=== PATIENT | male | born 1975 | race Caucasian/White ===

== ENCOUNTER 2017-12-29 07:56 | Emergency (ER) | payer BC, OTHER ==
[~2017-12-29] VITALS: Ht 182.9 cm; Wt 163.3 kg
--- OUTSIDE RECORDS SUMMARY | 2017-12-29 08:05 | XMS REPORT | CCD ---
Author Author EBONI CONROY Organization Unknown Address [address] [place], [place] [id number] Care Team Providers Care Tech Ed/Woodshop Teacher Name Role Phone [facility], SHEBA DO Attphys [facility], SHEBA DO Prisurg Vital Signs Unknown or Not Available. Allergies Unknown or Not Available. Procedures Procedure Code Procedure Type Date CT HEAD W/WO CONTRAST [id number] SNOMED CT 04/30/2015 LOCM 300-349 MG/ML, PER ML [id number] SNOMED CT 04/30/2015 History of Immunizations Unknown or Not Available. Problems Unknown or Not Available. Results Unknown or Not Available. Active Medications Unknown or Not Available. Medications Administered During Visit Unknown or Not Available. 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 Discharge Instructions You were admitted to [facility] on 04/30/2015 09:14 with a principal diagnosis of Baumann's palsy You were discharged from [facility] on 04/30/2015 11:46 Should you have any questions prior to discharge, please contact a member of your healthcare team. If you have left the hospital and have any questions, please contact your primary care physician. Chief Complaint and Reason For Visit Chief Complaint Date of Onset MIGRAIN Function Status Unknown or Not Available. Plan of Care Unknown or Not Available. Referral/Transition of Care Unknown or Not Available.
--- OUTSIDE RECORDS SUMMARY | 2017-12-29 08:06 | XMS REPORT ---
Author Author Abdirahman Ramirez V [facility] Address [address] [place], [place] [id number] Care Team Providers Care Inseminator Name Role Phone Abdirahman Ramirez V PCP Unavailable Abdirahman Ramirez V PreferredProvider Unavailable Allergies and Adverse Reactions Name Reaction Notes Adalat elevated bp, chest pain Plan of Treatment Not available. Medications Active Name Start Date Estimated Completion Date SIG Comments cyclobenzaprine oral hydrochlorothiazide oral metoprolol tartrate 50 mg oral tablet take 1 tablet (50 mg) by oral route 2 times per day with meals alprazolam 2 mg oral tablet 10/14/2017 02/11/2018 Take 1/2 tablet by mouth in the morning and 1/2 tablet in evening, and 1 tablet at bedtime Name Start Date Expiration Date SIG Comments Enalapril Maleate Oral Tablet 10 mg 04/17/2008 05/17/2008 DILT-CD Oral Capsule, Sust. Release 24 hr 300 mg 09/18/2008 10/18/2008 Bisoprolol-Hydrochlorothiazide Oral Tablet 5-6.25 mg 01/30/2009 03/01/2009 Halcion Oral Tablet 0.25 mg 05/01/2009 05/31/2009 take 2 tablets (0.5 mg) by oral route once daily at bedtime as needed for 30 days Levitra Oral Tablet 20 mg 09/04/2009 09/10/2009 take 1 tablet (20 mg) by oral route once daily as needed approximately 1 hour before sexual activity for 3 days tramadol 50 mg oral tablet 09/14/2017 10/14/2017 take 2 tablets by oral route 3 times a day for 30 days Discontinued Name Start Date Discontinued Date SIG Comments Hydrochlorothiazide Oral Tablet 25 mg 04/17/2008 10/11/2009 Flexeril Oral Tablet 10 mg 03/26/2009 10/11/2009 take 1 tablet (10 mg) by oral route 2 times per day Benicar HCT Oral Tablet 40-25 mg 10/11/2009 11/09/2012 take 1 tablet by oral route once daily Fish Oil Oral Capsule 1,000 mg 10/13/2013 take 1 capsule by oral route daily Amrix Oral Capsule, Sust. Release 24 hr 15 mg 10/13/2013 take 1 capsule ( 15 mg) by oral route once daily Pravastatin Oral Tablet 20 mg 11/09/2012 take 1 tablet (20 mg) by oral route once daily Potassium Chloride Oral Tab Sust.Rel. Particle/Crystal 20 mEq 10/13/2013 take 1 tablet (20 meq) by oral route once daily with food Problem List Not available. Vital Signs Date Time BP-Sys(mm[Hg] BP-Dora(mm[Hg]) HR(bpm) RR(rpm) Temp WT HT HC BMI BSA BMI Percentile O2 Sat(%) 09/17/2017 5:34:00 PM 158 mmHg 78 mmHg 86 bpm 18 rpm 99 F 368.5 lbs 73 in 48.6172 kg/m 2.9341 m 98 % 10/13/2013 8:22:00 AM 136 mmHg 72 mmHg 92 bpm 18 rpm 96.8 F 335 lbs 73 in 44.20 kg/m2 2.80 m2 98 % 11/09/2012 9:33:00 AM 136 mmHg 64 mmHg 98 bpm 18 rpm 98.6 F 346.25 lbs 73 in 45.6817 kg/m 2.8442 m 98 % 11/06/2010 9:15:00 AM 110 mmHg 70 mmHg 100 bpm 18 rpm 98.3 F 309.375 lbs 73 in 40.82 kg/m2 2.69 m2 99 % 11/11/2009 8:50:00 AM 100 mmHg 70 mmHg 76 bpm 18 rpm 98.2 F 303.5 lbs 73 in 40.0416 kg/m 2.6628 m 10/09/2009 10:57:00 AM 128 mmHg 82 mmHg 10/09/2009 10:36:00 AM 148 mmHg 98 mmHg 10/09/2009 10:13:00 AM 152 mmHg 100 mmHg 84 bpm 20 rpm 98.3 F 306 lbs 73.5 in 39.82 kg/m2 2.6829 m 03/26/2009 3:21:00 PM 152 mmHg 88 mmHg 88 bpm 20 rpm 98.5 F 304 lbs 73.5 in 39.5637 kg/m 2.67 m2 Social History Name Description Comments Alcohol Use History of Procedures Date Ordered Description Order Status 09/17/2017 12:00 AM Toradol 60 Mg Injection Reviewed 09/17/2017 12:00 AM Phenergan 50mg Injection Reviewed 09/17/2017 12:00 AM Benadryl 50mg Injection Reviewed 11/09/2012 12:00 AM URINALYSIS AUTO W/O SCOPE Reviewed 10/09/2009 12:00 AM METABOLIC PANEL TOTAL CA Reviewed 10/09/2009 12:00 AM COMPLETE CBC W/AUTO DIFF WBC Reviewed 10/09/2009 12:00 AM LIPID PANEL Reviewed 10/09/2009 12:00 AM ASSAY OF NATRIURETIC PEPTIDE Reviewed 10/09/2009 12:00 AM ASSAY OF FREE THYROXINE Reviewed 10/09/2009 12:00 AM ASSAY THYROID STIM HORMONE Reviewed 10/09/2009 12:00 AM GLYCOSYLATED HEMOGLOBIN TEST Reviewed 10/09/2009 12:00 AM ASSAY OF THYROID (T3 OR T4) Reviewed 11/11/2009 12:00 AM URINALYSIS AUTO W/O SCOPE Reviewed 10/13/2013 8:44 AM URINALYSIS AUTO W/O SCOPE Reviewed Results Summary Date and Description Results 10/10/2009 8:15 AM TRIGLYCERIDES 91.0 mg/dLCHOLESTEROL 203.0 mg/dLHDL 40.0 mg/ dLTOT CHOL/HDL 5.1 LDL (CALC) 145.0 mg/dLBNP 24.0 pg/mLFREE T4 1.31 TSH 1.20 uIU /mLT3 TOTAL 149.0 ng/dLGLYCOHEMOGLOBIN A1C 5.40 %WBC 0.2 RBC 0.69 HGB 2.50 g/ dLHCT 6.10 %MCV 88.0 fLMCH 36.20 pgMCHC 41.0 g/dLRDW SD 42 RDW CV 12.80 %MPV 8.90 fLPLT 24 NRBC# 0.00 NRBC% 0.0 %NEUT 77.70 %%LYMP 16.70 %%MONO 5.60 %%EOS 0.0 %%BASO 0.0 %#NEUT 0.14 #LYMP 0.03 #MONO 0.01 #EOS 0.00 #BASO 0.00 MANUAL DIFF PENDING GLUCOSE 95.0 mg/dLSODIUM 139.0 mmol/LPOTASSIUM 3.50 mmol/LCHLORIDE 98.0 mmol/LCO2 28.0 mmol/LBUN 18.0 mg/dLCREATININE 1.10 mg/dLCALCIUM 9.70 mg/ dLAGE 34 GFR NonAA 77 GFR AA 93 eGFR >60 mL/min/1.73 m2eGFR AA* >60 WBC 8.8 RBC 5.54 HGB 16.70 g/dLDATE/TIME CALLED: . READ BACK BY: . HCT 49.90 %MCV 90.0 fLMCH 30.10 pgMCHC 33.50 g/dLRDW SD 42 RDW CV 12.80 %MPV 10.50 fLPLT 199 NRBC# 0.00 NRBC% 0.0 %NEUT 72.50 %%LYMP 16.40 %%MONO 8.40 %%EOS 2.50 %%BASO 0.20 %# NEUT 6.41 #LYMP 1.45 #MONO 0.74 #EOS 0.22 #BASO 0.02 MANUAL DIFF SEE BELOW SEGS 66 BANDS 7 LYMPHS 23 MONOS 3 EOS 1.0 %ATYP LYMPHS FEW 10/13/2013 8:44 AM Bilirub Ur Ql Strip neg Glucose Ur-sCnc neg Hgb Ur Ql Strip neg Ketones Ur Ql Strip neg Nitrite Ur Ql Strip neg pH Ur-LsCnc 6.0 Prot Ur Ql Strip neg Sp Gr Ur Qn 1.020 Urobilinogen Ur-mCnc 0.2 WBC Est Ur Ql Strip neg History Of Immunizations Not available. History of Past Illness Name Date of Onset Comments Myalgia Mar 26 2009 3:31PM Arthritis unspecified Hypertension Fibromyalgia Hypertension Oct 09 2009 10:16AM Myalgia Oct 09 2009 10:16AM Arthritis unspecified Oct 09 2009 10:16AM Obesity Oct 09 2009 10:16AM Fatigue Oct 09 2009 10:16AM DOT Nov 11 2009 8:55AM DOT Nov 06 2010 9:13AM DOT Nov 09 2012 9:37AM DOT Oct 13 2013 8:24AM Migraine Sep 17 2017 5:42PM Payers Insurance Name Company Name Plan Name Plan Number Policy Number Policy Group Number Start Date Aetna Aetna [id number] N/A [employer] [facility] [id number] N/A [employer] [place] [id number] Thursday, 2009 [employer] [place] [id number] N/A [facility] [id number] Wednesday History of Encounters Visit Date Visit Type Provider 10/29/2017 Office visit Abdirahman LoidaAntnoio Ashley DO 10/05/2017 Office visit Abdirahman VAntonio Ashley DO 09/21/2017 Office visit Abdirahman V. Ashley DO 09/17/2017 Office visit Deepa Verma CORE STACKER 09/06/2017 Office visit Abdirahman VAntonio Ashley DO 08/30/2017 Office visit Abdirahman VAntonio Ashley DO 07/22/2017 Office visit Abdirahman VAntonio Ashley DO 06/28/2017 Office visit Abdirahman VAntonio Ashley DO 10/13/2013 Office visit Mary Higuera CORE STACKER 11/09/2012 Office visit Mary Higuera CORE STACKER 11/06/2010 Office visit Jose Salamanca MD 11/11/2009 Office visit Jose Salamanca MD 10/09/2009 Office visit Temitope BOLDEN 03/26/2009 Office visit Darleen MORIN
--- OUTSIDE RECORDS SUMMARY | 2017-12-29 08:06 | XMS REPORT | Continuity of Care Document ---
Author Author [facility] Address Unknown Phone Unavailable Allergies Active Description Code Type Severity Reaction Onset Reported/Identified Relationship to Patient Clinical Status Yes Adelet [id number] DRUG N/A N/A Medications There is no data. Problems Date Dx Coded Attending Type Code Diagnosis Diagnosed By 01/05/2017 P I10 Essential ( primary) hypertension 09/11/2017 P R251 Tremor, unspecified 09/11/2017 S R413 Other amnesia 09/11/2017 S R42 Dizziness and giddiness 11/01/2017 S E860 Dehydration 11/01/2017 P E873 Alkalosis 11/01/2017 S E876 Hypokalemia 11/01/2017 S N179 Acute kidney failure, unspecified Procedures There is no data. Results There is no data. Encounters ACCT No. Visit Date/Time Discharge Status Pt. Type Provider Facility Loc./Unit Complaint [id number] 11/26/2017 10:02:24 11/26/2017 23:59:59 CLS Outpatient Ashley, Abdirahman V [id number] 10/05/2017 16:20:35 10/05/2017 23:59:59 CLS Outpatient Ashley, Abdirahman V [id number] 09/21/2017 11:30:54 09/21/2017 23:59:59 CLS Outpatient Ashley, Abdirahman V [id number] 09/17/2017 18:17:55 09/17/2017 23:59:59 CLS Outpatient Deepa Verma [id number] 09/06/2017 17:00:15 09/06/2017 23:59:59 CLS Outpatient Ashley, Abdirahman V [id number] 09/03/2017 09:57:57 09/03/2017 23:59:59 CLS Outpatient Ashley, Abdirahman V [id number] 07/22/2017 12:03:00 07/22/2017 23:59:59 CLS Outpatient Ashley, Abdirahman V [id number] 06/28/2017 17:29:27 06/28/2017 23:59:59 CLS Outpatient Ashley, Abdirahman V [id number] 10/13/2013 09:10:20 10/13/2013 23:59:59 CLS Outpatient Mary Higuera [id number] 12/20/2017 18:59:07 Document Registration [id number] 12/20/2017 18:53:16 Document Registration [id number] 12/07/2017 22:13:14 Document Registration [id number] 12/07/2017 22:08:26 Document Registration [id number] 11/23/2017 10:19:49 Document Registration [id number] 11/23/2017 09:01:19 Document Registration [id number] 11/12/2017 08:00:09 Document Registration [id number] 11/01/2017 23:36:57 Document Registration [id number] 11/01/2017 14:33:05 Document Registration [id number] 09/11/2017 07:32:00 Document Registration [id number] 01/05/2017 12:02:00 Document Registration
[2017-12-29 09:22] LABS: BASOPHILS % (AUTO) 0 % (0-10); EOSINOPHILS # (AUTO) 0.7 10^3/uL (0.0-0.3); EOSINOPHILS % (AUTO) 7 % (0-10); HEMATOCRIT 37 % (40-54); HEMOGLOBIN 12.6 G/DL (13.3-17.7); LYMPHOCYTES # (AUTO) 1.5 X 10^3 (1.0-4.0); LYMPHOCYTES % (AUTO) 15 % (12-44); MEAN CORPUSCULAR HEMOGLOBIN 30 PG (25-34); MEAN CORPUSCULAR HGB CONC 34 G/DL (32-36); MEAN CORPUSCULAR VOLUME 89 FL (80-99); MEAN PLATELET VOLUME 8.3 FL (7.4-10.4); MONOCYTES # (AUTO) 1.2 X 10^3 (0.0-1.0); MONOCYTES % (AUTO) 12 % (0-12); NEUTROPHILS # (AUTO) 6.8 X 10^3 (1.8-7.8); NEUTROPHILS % (AUTO) 66 % (42-75); PLATELET COUNT 434 10^3/uL (130-400); RED BLOOD COUNT 4.17 10^6/uL (4.35-5.85); RED CELL DISTRIBUTION WIDTH 12.4 % (10.0-14.5); WHITE BLOOD COUNT 10.3 10^3/uL (4.3-11.0)
[2017-12-29 09:41] LABS: PROTHROMBIN TIME PATIENT 13.3 SEC (12.2-14.7)
[2017-12-29 09:46] LABS: ALANINE AMINOTRANSFERASE 37 U/L (0-55); ALBUMIN 4.1 GM/DL (3.2-4.5); ALKALINE PHOSPHATASE 86 U/L (40-136); BILIRUBIN,TOTAL 0.4 MG/DL (0.1-1.0); BUN/CREATININE RATIO 17; CALCIUM 9.9 MG/DL (8.5-10.1); CARBON DIOXIDE 25 MMOL/L (21-32); CHLORIDE 101 MMOL/L (98-107); CREATININE SERUM 1.58 MG/DL (0.60-1.30); GFR ESTIMATED 48; GLUCOSE 109 MG/DL (70-105); MAGNESIUM 1.9 MG/DL (1.8-2.4); POTASSIUM 3.4 MMOL/L (3.6-5.0); SODIUM 138 MMOL/L (135-145); TOTAL PROTEIN 7.6 GM/DL (6.4-8.2)
[2017-12-29 10:08] LABS: TSH (THYROID ANALYZER) 1.31 UIU/ML (0.35-4.94)
[2017-12-29 10:43] LABS: BILIRUBIN,URINE NEGATIVE (NEGATIVE); CLARITY,URINE CLEAR; COLOR,URINE AMBER; GLUCOSE, URINE (UA) NEGATIVE (NEGATIVE); KETONES,URINE NEGATIVE (NEGATIVE); LEUKOCYTE ESTERASE ,URINE NEGATIVE (NEGATIVE); NITRITE,URINE NEGATIVE (NEGATIVE); PH,URINE 5 (5-9); PROTEIN,URINE 1+ (NEGATIVE); UROBILINOGEN,URINE NORMAL (NORMAL)
[2017-12-29 10:50] LABS: BACTERIA,URINE NEGATIVE /HPF; SQUAMOUS EPITHELIAL CELL,UR >50 /HPF; WBC,URINE 0-2 /HPF
[2017-12-29] MEDS ORDERED: LACTATED RINGERS 1,000 ML IV ONE (11:00)
[2017-12-29] MEDS ORDERED: KCL 10 MEQ TAB (MICRO K) PO ONE (11:00)
[2017-12-29 11:05] LABS: AMPHETAMINE SCREEN, URINE NEGATIVE (NEGATIVE); BARBITURATE SCREEN URINE NEGATIVE (NEGATIVE); BENZODIAZEPINES SCREEN URINE POSITIVE (NEGATIVE); CANNABINOID SCREEN, URINE NEGATIVE (NEGATIVE); COCAINE SCREEN URINE NEGATIVE (NEGATIVE); METHADONE STAT NEGATIVE (NEGATIVE); METHAMPHETAMINE SCREEN URINE S NEGATIVE (NEGATIVE); OPIATE SCREEN URINE NEGATIVE (NEGATIVE); OXYCODONE STAT NEGATIVE (NEGATIVE); PROPOXYPHENE STAT NEGATIVE (NEGATIVE); TRICYCLIC ANTIDEPRESSANTS SCRE POSITIVE (NEGATIVE)
--- NOTE | 2017-12-29 12:03 | ED General ---
General Chief Complaint: General Problems/Pain Stated Complaint: DEHYDRATION Nursing Triage Note: PT AMBULATES TO ROOM 10 PT CO OF LOW K+, DEHYDRATION AND VOMITING, STATES HAS BEEN IN HOSP IN [place] Q 2 WEEKS FOR LOW K+. Nursing Sepsis Screen: No Definite Risk Allergies and Home Medications Allergies Coded Allergies: No Known Drug Allergies (Unverified , 12/29/17) Past Ytsshvb-Mjruni-Rwaxhx Hx Patient Social History Recent Foreign Travel: No Contact w/Someone Who Travel: No Recent Infectious Disease Expo: No Physical Exam Vital Signs Vital Signs - First Documented 12/29/17 08:15 Temp 97.3 Pulse 74 Resp 18 B/P (MAP) 128/65 (86) Pulse Ox 96 Capillary Refill : Less Than 3 Seconds Height, Weight, BMI Height: 6'0" Weight: 360lbs. oz. 163.119674ln; BMI Method:Stated Progress/Results/Core Measures Suspected Sepsis Recent Fever Within 48 Hours: No Infection Criteria Present: None New/Unexplained Altered Menta: No Sepsis Screen: No Definite Risk SIRS Temperature:97.3 Pulse: 74 Respiratory Rate: 18 Laboratory Tests 12/29/17 09:12: White Blood Count 10.3 Blood Pressure 128 /65 Mean: 86 Laboratory Tests 12/29/17 09:12: Creatinine 1.58H, INR Comment 1.0, Platelet Count 434H, Total Bilirubin 0.4 Results/Orders Lab Results Laboratory Tests Test 12/29/17 09:12 12/29/17 10:36 Range/Units White Blood Count 10.3 4.3-11.0 10^3/uL Red Blood Count 4.17 L 4.35-5.85 10^6/uL Hemoglobin 12.6 L 13.3-17.7 G/DL Hematocrit 37 L 40-54 % Mean Corpuscular Volume 89 80-99 FL Mean Corpuscular Hemoglobin 30 25-34 PG Mean Corpuscular Hemoglobin Concent 34 32-36 G/DL Red Cell Distribution Width 12.4 10.0-14.5 % Platelet Count 434 H 130-400 10^3/uL Mean Platelet Volume 8.3 7.4-10.4 FL Neutrophils (%) (Auto) 66 42-75 % Lymphocytes (%) (Auto) 15 12-44 % Monocytes (%) (Auto) 12 0-12 % Eosinophils (%) (Auto) 7 0-10 % Basophils (%) (Auto) 0 0-10 % Neutrophils # (Auto) 6.8 1.8-7.8 X 10^3 Lymphocytes # (Auto) 1.5 1.0-4.0 X 10^3 Monocytes # (Auto) 1.2 H 0.0-1.0 X 10^3 Eosinophils # (Auto) 0.7 H 0.0-0.3 10^3/uL Basophils # (Auto) 0.0 0.0-0.1 10^3/uL Prothrombin Time 13.3 12.2-14.7 SEC INR Comment 1.0 0.8-1.4 Activated Partial Thromboplast Time 29 24-35 SEC Sodium Level 138 135-145 MMOL/L Potassium Level 3.4 L 3.6-5.0 MMOL/L Chloride Level 101 98-107 MMOL/L Carbon Dioxide Level 25 21-32 MMOL/L Anion Gap 12 5-14 MMOL/L Blood Urea Nitrogen 27 H 7-18 MG/DL Creatinine 1.58 H 0.60-1.30 MG/DL Estimat Glomerular Filtration Rate 48 BUN/Creatinine Ratio 17 Glucose Level 109 H 70-105 MG/DL Calcium Level 9.9 8.5-10.1 MG/DL Corrected Calcium 9.8 8.5-10.1 MG/DL Magnesium Level 1.9 1.8-2.4 MG/DL Total Bilirubin 0.4 0.1-1.0 MG/DL Aspartate Amino Transf (AST/SGOT) 19 5-34 U/L Alanine Aminotransferase (ALT/SGPT) 37 0-55 U/L Alkaline Phosphatase 86 40-136 U/L Troponin I < 0.30 <0.30 NG/ML B-Type Natriuretic Peptide < 10.0 <100.0 PG/ML Total Protein 7.6 6.4-8.2 GM/DL Albumin 4.1 3.2-4.5 GM/DL TSH Holt Testing 1.31 0.35-4.94 UIU/ML Urine Color EKTA H Urine Clarity CLEAR Urine pH 5 5-9 Urine Specific [place] 1.025 H 1.016-1.022 Urine Protein 1+ H NEGATIVE Urine Glucose (UA) NEGATIVE NEGATIVE Urine Ketones NEGATIVE NEGATIVE Urine Nitrite NEGATIVE NEGATIVE Urine Bilirubin NEGATIVE NEGATIVE Urine Urobilinogen NORMAL NORMAL MG/DL Urine Leukocyte Esterase NEGATIVE NEGATIVE Urine RBC (Auto) NEGATIVE NEGATIVE Urine RBC NONE /HPF Urine WBC 0-2 /HPF Urine Squamous Epithelial Cells >50 H /HPF Urine Crystals NONE /LPF Urine Bacteria NEGATIVE /HPF Urine Casts NONE /LPF Urine Mucus NEGATIVE /LPF Urine Culture Indicated NO Urine Opiates Screen NEGATIVE NEGATIVE Urine Oxycodone Screen NEGATIVE NEGATIVE Urine Methadone Screen NEGATIVE NEGATIVE Urine Propoxyphene Screen NEGATIVE NEGATIVE Urine Barbiturates Screen NEGATIVE NEGATIVE Ur Tricyclic Antidepressants Screen POSITIVE H NEGATIVE Urine Phencyclidine Screen NEGATIVE NEGATIVE Urine Amphetamines Screen NEGATIVE NEGATIVE Urine Methamphetamines Screen NEGATIVE NEGATIVE Urine Benzodiazepines Screen POSITIVE H NEGATIVE Urine Cocaine Screen NEGATIVE NEGATIVE Urine Cannabinoids Screen NEGATIVE NEGATIVE My Orders Orders - GAYLA JOHNSTON DO Saline Lock/Iv-Start (12/29/17 08:44) Ekg Tracing (12/29/17 08:44) Monitor-Rhythm Ecg Trace Only (12/29/17 08:44) BNP (12/29/17 08:44) Cbc With Automated Diff (12/29/17 08:44) Comprehensive Metabolic Panel (12/29/17 08:44) Drug Screen Stat (Urine) (12/29/17 08:44) Magnesium (12/29/17 08:44) Protime With Inr (12/29/17 08:44) Partial Thromboplastin Time (12/29/17 08:44) Thyroid Analyzer (12/29/17 08:44) Troponin I (12/29/17 08:44) Ua Culture If Indicated (12/29/17 08:44) Saline Lock/Iv-Start (12/29/17 08:44) Saline Lock/Iv-Start (12/29/17 11:00) Lactated Ringers (Lr 1000 Ml Iv Solution (12/29/17 11:00) Potassium Chloride (Tablet) (Klor Con Ta (12/29/17 11:00) Medications Given in ED Current Medications Medications Dose Ordered Sig/Long Route Start Time Stop Time Status Last Admin Dose Admin Lactated Ringer's 1,000 ml @ 0 mls/hr Q0M ONCE IV 12/29/17 11:00 12/29/17 11:01 DC 12/29/17 11:10 1,000 MLS/HR Potassium Chloride 20 meq ONCE ONCE PO 12/29/17 11:00 12/29/17 11:01 DC 12/29/17 11:10 20 MEQ Vital Signs/I&O 12/29/17 08:15 Temp 97.3 Pulse 74 Resp 18 B/P (MAP) 128/65 (86) Pulse Ox 96 Capillary Refill : Less Than 3 Seconds Blood Pressure Mean: 86 Departure Impression Primary Impression: Mild dehydration Additional Impressions: Mild renal insufficiency MILD HYPOKALEMIA Disposition: HOME, SELF-CARE Condition: Stable Departure-Patient Inst. Referrals: UNKNOWN (PCP) Primary Care Physician Patient Instructions: Dehydration, Adult (DC), Hypokalemia (DC) Add. Discharge Instructions: HOLD LASIX UNTIL YOU ARE RECHECKED BY YOUR DR. CONTINUE YOUR OTHER MEDICATIONS PRESCRIBED FOLLOW UP WITH YOUR DR IN 1-2 DAYS FOR FURTHER CARE All discharge instructions reviewed with patient and/or family. Voiced understanding. GAYLA JOHNSTON DO Dec 29, 2017 12:03
[2017-12-29 12:12] VITALS: BP 130/77
== END 2017-12-29 12:19 | disposition home or self-care (01) ==
LOC: ER 07:58
DX: E86.0 Dehydration (principal); N28.9 Disorder of kidney and ureter, unspecified; E87.6 Hypokalemia
CPT/HCPCS: 36415; 80053; 80306; 81000; 83735; 83880; 84443; 84484; 85025; 85610; 85730; 93005